=== PATIENT | male | born 1940 | race Caucasian/White ===

== ENCOUNTER 2016-06-12 19:03 | Emergency (ER) | payer MEDICARE, MEDICAID ==
[~2016-06-12] VITALS: Ht 177.8 cm; Wt 85.0 kg
[~2016-06-12 19:03] MED LIST: LEVE500T19 PO; METO25TA6 PO; OMEP20CA10 PO; TAMS0.4C31 PO; TERA2CAP53 PO
[2016-06-12] MEDS ORDERED: NALOXONE HCL 1 MG/ML 2ML VIAL ONE (19:25)
[2016-06-12] MEDS ORDERED: SODIUM CHLORIDE 0.9% 1,000 ML IV ONE (19:37)
[2016-06-12] MEDS ORDERED: MORPHINE SULFATE 4 MG/ML CPJ (NOT FOR IM USE) IV STA (19:37)
[2016-06-12] MEDS ORDERED: ONDANSETRON HCL 4MG/2ML VIAL IV STA (19:37)
[2016-06-12] MEDS ORDERED: ETOMIDATE 2MG/ML 10ML VIAL IV ONE (19:45)
[2016-06-12] MEDS ORDERED: PROPOFOL 10MG/ML 100ML 100 ML IV ONE (19:45)
[2016-06-12] MEDS ORDERED: SUCCINYLCHOLINE CHLORIDE 200MG/10ML VIAL IV ONE (19:45)
[2016-06-12 19:46] VITALS: BP 153/76
[2016-06-12] MEDS ORDERED: EPINEPHRINE 0.1MG/ML (1:10,000) 10ML SYR ONE (20:00)
[2016-06-12] MEDS ORDERED: SODIUM BICARBONATE 7.5% 0.9 MEQ/ML 50ML SYR IV ONE (20:00)
[2016-06-12 20:05] LABS: BASOPHILS % 0.3 % (0.0-2.0); EOSINOPHILS % 0.8 % (0.0-5.0); HEMATOCRIT. 37.2 % (42.0-52.0); HEMOGLOBIN. 11.8 g/dL (14.0-18.0); LYMPHOCYTES % 25.9 % (20.0-50.0); MEAN CORPUSCULAR HEMOGLOBIN 26.8 pg (28.0-32.0); MEAN CORPUSCULAR HGB CONC 31.7 g/dL (31.0-37.0); MEAN CORPUSCULAR VOLUME 84.4 fL (80.0-94.0); MONOCYTES % 5.6 % (2.0-8.0); NEUTROPHILS % 67.4 % (40.0-76.0); PLATELET 366 x1000/uL (130-400); RED BLOOD CELL COUNT 4.41 mill/uL (4.7-6.1); RED CELL DISTRIBUTION WIDTH 17.8 % (11.6-14.6); WHITE BLOOD COUNT 18.7 x1000/uL (4.5-11.0)
[2016-06-12 20:11] LABS: INR 1.2; PROTHROMBIN TIME 12.6 sec
[2016-06-12 20:18] LABS: ALANINE AMINOTRANSFERASE 25 IU/L (13-61); ALBUMIN 2.5 g/dL (3.4-5.0); ANION GAP 15; CALCIUM 9.1 mg/dL (8.5-10.1); CARBON DIOXIDE 26 mEq/L (21-32); CHLORIDE 103 mEq/L (98-107); INDEX HEMOLYSI 2 (1-3); INDEX ICTERIC 1 (1-4); INDEX LIPEMIC 1 (1-3); NT PRO B-TYPE NATRIURETIC PEP 5415 pg/mL (5-125); TROPONIN I 0.29 ng/mL (0.00-0.04); UREA NITROGEN BLOOD 37 mg/dL (7-21); eGFR 46 mL/min (>60)
[2016-06-12 20:28] LABS: LACTIC ACID 2.3 mmol/L (0.4-2.0)
== END 2016-06-12 23:49 | disposition expired ==
LOC: ER 19:04
DX: I46.9 Cardiac arrest, cause unspecified (principal); J44.9 Chronic obstructive pulmonary disease, unspecified; I12.9 Hypertensive chronic kidney disease with stage 1 through stage 4 chronic kidney disease, or unspecified chronic kidney disease; N18.9 Chronic kidney disease, unspecified; G40.909 Epilepsy, unspecified, not intractable, without status epilepticus; E11.9 Type 2 diabetes mellitus without complications; F03.90 Unspecified dementia, unspecified severity, without behavioral disturbance, psychotic disturbance, mood disturbance, and anxiety; D63.1 Anemia in chronic kidney disease; Z85.118 Personal history of other malignant neoplasm of bronchus and lung
CPT/HCPCS: 31500; 36415; 36556; 71010; 80053; 83605; 83880; 84484; 85025; 85610; 87040; 92950; 99285; J0171; J0330; J2310; J3490; 94002; 96374; 96375; J7030